=== PATIENT | male | born 1965 | race Caucasian/White ===

== ENCOUNTER 2019-07-28 21:10 | Emergency (ER) | payer MEDICAID ==
[~2019-07-28] VITALS: Ht 177.8 cm; Wt 120.5 kg
[2019-07-28 21:18] VITALS: Ht 177.8 cm; Wt 120.5 kg
[2019-07-28] MEDS ORDERED: ZYPREXA10 MG (21:18)
[2019-07-28] MEDS ORDERED: GABAPENTIN300 MG (21:18)
[2019-07-28] MEDS ORDERED: HEART MEDICATIONS (21:19)
[2019-07-28 21:35] LABS: BILIRUBIN NEGATIVE (NEGATIVE); GLUCOSE NEGATIVE (NEGATIVE); KETONE NEGATIVE (NEGATIVE); NITRITE NEGATIVE (NEGATIVE); UROBILINOGEN NORMAL (NORMAL)
[2019-07-28 21:38] LABS: CALC OSMOLALITY 272 mosm/kg (275-300); CALCIUM 9.1 mg/dL (8.5-10.1); CARBON DIOXIDE 25.4 mmol/L (21.0-32.0); CHLORIDE - SERUM 102 mmol/L (98-107); CREATININE - SERUM 0.9 mg/dL (0.6-1.3); GLUCOSE 137 mg/dL (74-106); POTASSIUM - SERUM 3.6 mmol/L (3.5-5.1); SODIUM 136 mmol/L (136-145); UREA NITROGEN 11 mg/dL (7-18); eGFR NON AFRICAN AMERICAN > 90 mL/min (90-120)
[2019-07-28 21:45] LABS: ALBUMIN 3.8 g/dL (3.4-5.0); ALKALINE PHOSPHATASE 121 U/L (30-120); ALT (SGPT) 18 U/L (10-68); BILIRUBIN - TOTAL 0.98 mg/dL (0.2-1.3); MAGNESIUM - SERUM 1.6 mg/dL (1.8-2.4); PROTEIN - SERUM 7.7 g/dL (6.4-8.2)
[2019-07-28 21:48] LABS: BASOPHILS 0.4 % (0-2); EOSINOPHILS 0.9 % (0-7); HEMATOCRIT 44.6 % (42.0-54.0); HEMOGLOBIN 15.4 g/dL (13.5-17.5); IMMATURE GRANULOCYTES 0.2 % (0-5); LYMPHOCYTES 33.2 % (15-50); MCH 30.2 pg (26.0-34.0); MCHC 34.5 g/dL (31.0-37.0); MCV 87.5 fL (80.0-100.0); MONOCYTES 8.7 % (2-11); NEUTROPHILS 56.6 % (40-80); PLATELET COUNT 240 10x3/uL (130-400); RDW 12.9 % (11.5-14.5); WBC 10.3 10x3/uL (4.8-10.8)
[2019-07-28 21:50] LABS: UDS - AMPHET POSITIVE QUAL (NEGATIVE); UDS - BARB NEGATIVE QUAL (NEGATIVE); UDS - BENZO POSITIVE QUAL (NEGATIVE); UDS - COCAINE NEGATIVE QUAL (NEGATIVE); UDS - OPIATE NEGATIVE QUAL (NEGATIVE); UDS - PCP NEGATIVE QUAL (NEGATIVE); UDS - THC POSITIVE QUAL (NEGATIVE)
[2019-07-28 22:17] LABS: PRO BNP 55 pg/mL (0-125); THYROID STIMULATING HORMONE 0.69 uIU/mL (0.36-3.74); TROPONIN-I < 0.017 ng/mL (0.000-0.060)
--- NOTE | 2019-07-28 22:48 | NUR ---
PATIENT IN ER, WITH SUICIDIAL THOUGHTS, HE CAN IDENTIFY REASONS FOR LIVING BUT HE REPORTS THAT VOICES TELL HIM THAT HE IS IMMORTAL AND TO JUMP IN FRONT OF A CAR. HE IS LABILE. PATIENT WILL BE PLACED ON ONE TO ONE. PATIENT IS IN PAPER SCRUBS. NO ITEMS IN ROOM THAT CAN BE USED TO HARM HIMSELF.
[2019-07-29 02:14] VITALS: BP 132/76
== END 2019-07-29 02:14 ==
LOC: D.ER 21:10
PROVIDERS: Family Medicine
DX: R45.851 Suicidal ideations (principal); R44.0 Auditory hallucinations; R45.850 Homicidal ideations; R44.1 Visual hallucinations